=== PATIENT | female | born 2000 | race Caucasian/White ===

== ENCOUNTER → 2021-07-19 18:29 | Observation (INO) ==
[2021-07-19 18:01] LABS: Bilirubin,Urine Negative (Negative); Blood,Urine Negative (Negative); Clarity,Urine Turbid (Clear); Color,Urine Yellow (Yellow); Glucose,Urine (UA) Normal (Normal); Ketones,Urine Negative (Negative); Leukocyte Esterase,Urine Small (Negative); Mucus,Urine Few per lpf (None-Few); Nitrite,Urine Negative (Negative); Protein,Urine 30 mg/dL (Neg-Trace); RBC,Urine 0-3 per hpf (0-3); Specific Gravity,Urine 1.024 (1.010-1.025); Squamous Epithelial Cell,Urine Many per hpf (None-Few); Urobilinogen,Urine Normal (Normal)
== END | disposition home or self-care (01) ==
LOC: 1NENULAB
PROVIDERS: ADMIT Advanced Practice Midwife; ATTEND Advanced Practice Midwife

== ENCOUNTER 2021-09-28 03:16 | Inpatient (IN) ==
[~2021-09-28 03:16] MED LIST: *HR* Nalbuphine 10 MG/ML AMPUL IV PRN; Azithromycin 500 MG in 0.9 % Sodium Chloride 250 ML IVPB PRN; Famotidine 20 MG/2 ML VIAL IVP PRN; Metoclopramide 10 MG/2 ML VIAL IVP PRN; Naloxone 0.4 MG/ML INJ IVP PRN; Ondansetron 4 MG/2 ML VIAL IVP PRN
[2021-09-28 03:39] LABS: Basophils # 0.1 K/mcL (0.0-0.2); Basophils % 0.4 %; Eosinophils # 0.1 K/mcL (0.0-0.6); Eosinophils % 0.7 %; Hematocrit 38.4 % (35.3-44.9); Hemoglobin 12.3 g/dL (11.5-15.4); Immature Granulocytes % 0.4 % (0-4); Lymphocytes # 3.1 K/mcL (0.6-4.6); Lymphocytes % 27.3 %; Mean Corpuscular Hemoglobin 28.8 pg (28.0-33.3); Mean Corpuscular Volume 89.9 fL (83.0-100.0); Mean Platelet Volume 12.6 fL (9.4-12.4); Monocytes # 1.1 K/mcL (0.0-1.3); Monocytes % 9.2 %; Neutrophils # 7.1 K/mcL (1.6-8.9); Platelet Count 222 K/mcL (140-400); Red Blood Count 4.27 M/mcL (3.82-4.97); Red Cell Distribution Width 14.6 % (11.5-14.5); White Blood Count 11.5 K/mcL (4.3-11.1)
[2021-09-28 03:48] LABS: Amphetamine Screen,Urine Negative ng/mL (Cutoff=1000); Barbiturate Screen,Urine Negative ng/mL (Cutoff=200); Benzodiazepines Screen,Urine Negative ng/mL (Cutoff=200); Cannabinoid Screen,Urine Negative ng/mL (Cutoff = 50); Cocaine Screen,Urine Negative ng/mL (Cutoff= 300); Opiate Screen,Urine Negative ng/mL (Cutoff=300); Phencyclidine Screen,Urine Negative ng/mL (Cutoff=25)
[2021-09-28] MEDS ORDERED: Vancomycin 1,500 MG/265 ML IV.SOLN IVPB SCH (05:00)
[2021-09-28] MEDS ORDERED: Epidural Premix (fent/bupiv) 110 ML EP ONE (07:16)
[2021-09-28] MEDS: Ringers Solution, Lactated 1,000 ML IVC SCH ×3 (07:38→10:49)
[2021-09-28] MEDS ORDERED: *HR* FentaNYL (PF) 100 MCG/2 ML VIAL EP ONE (07:43)
[2021-09-28] MEDS ORDERED: Naloxone 0.4 MG/ML INJ IVP PRN (07:43)
[2021-09-28] MEDS ORDERED: EPHEDrine 50 MG/ML VIAL IVP PRN (07:43)
[2021-09-28] MEDS ORDERED: Ondansetron 4 MG/2 ML VIAL IVP PRN (07:43)
[2021-09-28] MEDS ORDERED: Ropivacaine/PF 0.2% 20 ML VIAL EP ONE (07:43)
[2021-09-28] MEDS: Epidural Premix (fent/bupiv) 110 ML EP SCH ×2 (08:04→15:35)
[2021-09-28] MEDS ORDERED: Oxytocin 30 UNIT/503 ML BAG IVC SCH ×2 (09:00→21:10)
[2021-09-28] MEDS ORDERED: EPHEDrine 50 MG/ML VIAL ONE (09:12)
[2021-09-28] MEDS ORDERED: Vancomycin 2,000 MG/520 ML IV.SOLN IVPB SCH (13:00)
[2021-09-28] MEDS ORDERED: Benzocaine/Menthol 56 GM AEROSOL SPRAY TP PRN (21:10)
[2021-09-28] MEDS ORDERED: Ondansetron ODT 4 MG TAB.RAPDIS SL PRN (21:10)
[2021-09-28] MEDS ORDERED: OXYTOCIN/RINGERS LACTATE 10 UNIT/166.6 ML BAG IVC ONE (21:10)
[2021-09-28] MEDS ORDERED: Lanolin 7 G OINT...G. TP PRN (21:10)
[2021-09-28] MEDS: Ibuprofen 600 MG TABLET PO SCH (21:57)
[2021-09-28] MEDS: Acetaminophen 325 MG TABLET PO SCH (21:57)
[2021-09-29] MEDS: Ibuprofen 600 MG TABLET PO SCH ×3 (04:50→16:46)
[2021-09-29] MEDS: Acetaminophen 325 MG TABLET PO SCH ×3 (04:51→16:46)
[2021-09-29] MEDS: Prenatal Vit/FA 1 EACH TABLET PO SCH (08:48)
[2021-09-29] MEDS ORDERED: Rho Immune Globulin 1,500 UNIT SYRINGE IM ONE (15:41)
[2021-09-30] MEDS: Ibuprofen 600 MG TABLET PO SCH ×3 (03:59→10:46)
[2021-09-30] MEDS: Acetaminophen 325 MG TABLET PO SCH ×3 (04:00→10:45)
[2021-09-30 07:34] VITALS: BP 116/57; PULSE 98; TEMP 98.4; O2SAT 96
[2021-09-30] MEDS: Prenatal Vit/FA 1 EACH TABLET PO SCH (08:35)
== END 2021-09-30 11:45 | disposition home or self-care (01) | DRG 807 ==
LOC: 1NENULAB → 1NENUOBS 22:05
PROVIDERS: ADMIT Advanced Practice Midwife; ATTEND Advanced Practice Midwife